=== PATIENT | female | born 1985 | race African-American/Black ===

== ENCOUNTER 2018-04-20 00:32 | Emergency (ER) | payer MEDICAID ==
[2018-04-20 00:53] VITALS: Ht 170.2 cm
[2018-04-20 02:18] VITALS: BP 102/65
== END 2018-04-20 02:18 | disposition home or self-care (01) ==
LOC: ED 00:32
DX: J11.1 Influenza due to unidentified influenza virus with other respiratory manifestations (principal); F17.210 Nicotine dependence, cigarettes, uncomplicated; Z71.6 Tobacco abuse counseling; Z98.51 Tubal ligation status; Z98.890 Other specified postprocedural states
CPT/HCPCS: 99406

== ENCOUNTER 2018-06-29 14:37 | Emergency (ER) | payer MEDICAID ==
[~2018-06-29] VITALS: Ht 170.2 cm; Wt 44.5 kg
[2018-06-29 14:41] VITALS: Ht 170.2 cm; Wt 44.5 kg
[2018-06-29 16:03] VITALS: BP 122/77
== END 2018-06-29 16:03 | disposition home or self-care (01) ==
LOC: ED 14:37
DX: J20.9 Acute bronchitis, unspecified (principal); Z98.51 Tubal ligation status; Z98.890 Other specified postprocedural states

== ENCOUNTER 2018-10-17 06:07 | Emergency (ER) | payer MEDICAID ==
[~2018-10-17] VITALS: Ht 170.2 cm; Wt 42.6 kg
[2018-10-17 06:22] VITALS: Ht 170.2 cm; Wt 42.6 kg
[2018-10-17 08:30] VITALS: BP 120/63
== END 2018-10-17 08:30 | disposition home or self-care (01) ==
LOC: ED 06:07
DX: M79.10 Myalgia, unspecified site (principal); F17.210 Nicotine dependence, cigarettes, uncomplicated; R51 Headache; Z98.51 Tubal ligation status
CPT/HCPCS: 87804; J1885

== ENCOUNTER 2018-10-17 17:35 | Emergency (ER) | payer MEDICAID ==
[~2018-10-17] VITALS: Ht 170.2 cm; Wt 44.9 kg
[2018-10-17 18:11] VITALS: Ht 170.2 cm; Wt 44.9 kg
[2018-10-17 19:14] LABS: BASOPHIL % 0.2 % (0-2); PLATELET COUNT 314 x10^3mcL (130-400)
[2018-10-17 19:19] LABS: CALCIUM 8.8 mg/dL (8.5-10.1); CARBON DIOXIDE 29.8 mmol/L (21-32); CHLORIDE SERUM 99 mmol/L (98-107); GFR1 > 60 mL/min; GLUCOSE SERUM 112 mg/dL (74-106); POTASSIUM SERUM 3.3 mmol/L (3.5-5.1); SODIUM SERUM 137 mmol/L (136-145)
[2018-10-17 19:23] LABS: ALBUMIN 4.2 g/dL (3.4-5.0); ALKALINE PHOSPHATASE 62 U/L (46-116); ALT/SGPT 25 U/L (14-59); AST/SGOT 23 U/L (15-37); BILIRUBIN TOTAL 0.44 mg/dL (0.20-1.00)
[2018-10-17 19:30] LABS: UA SPECIFIC GRAVITY 1.025 (1.005-1.035); microscopic required? YES; urine erythrocyte TRACE (NEGATIVE)
[2018-10-17 20:08] VITALS: BP 101/52
== END 2018-10-17 20:08 | disposition home or self-care (01) ==
LOC: ED 17:35
PROVIDERS: Emergency Medicine
DX: K52.9 Noninfective gastroenteritis and colitis, unspecified (principal); N39.0 Urinary tract infection, site not specified; R51 Headache; Z98.51 Tubal ligation status; Z98.890 Other specified postprocedural states; Z91.018 Allergy to other foods
CPT/HCPCS: J1885; J2405; J7030

== ENCOUNTER 2019-01-16 13:44 | Inpatient (IN) | payer MEDICAID ==
[~2019-01-16] VITALS: Ht 170.2 cm; Wt 41.4 kg
[2019-01-16 13:49] VITALS: Ht 170.2 cm; Wt 41.4 kg
--- NOTE | 2019-01-16 13:59 | NUR ---
PT BIB SELF C/C BODY ACHES LUNDBERG X [address]
--- NOTE | 2019-01-16 14:20 | NUR ---
PLEASE ENTER FULL NAMES OF CUSTOM STUDIO COORDINATOR/RN Patient data collected by (CUSTOM STUDIO COORDINATOR): Harpreet SELLERS CUSTOM STUDIO COORDINATOR Assessment reviewed and completed by (RN): MILLIE CALVO RN
--- NOTE | 2019-01-16 14:39 | NUR ---
DR JACOBSON AT BEDSIDE TO EVAL
[2019-01-16 15:03] LABS: BASOPHIL % 0.2 % (0-2); PLATELET COUNT 362 x10^3mcL (130-400); RED CELL DISTRIBUTION WIDTH 13.6 % (11.5-14.5)
--- NOTE | 2019-01-16 15:08 | NUR ---
TAKEN TO RADIOLOGY FOR CT
[2019-01-16 15:11] LABS: CALCIUM 9.2 mg/dL (8.5-10.1); CARBON DIOXIDE 28.1 mmol/L (21-32); CHLORIDE SERUM 99 mmol/L (98-107); CREATININE SERUM 0.8 mg/dL (0.6-1.0); GFR1 > 60 mL/min; GLUCOSE SERUM 90 mg/dL (74-106); POTASSIUM SERUM 3.1 mmol/L (3.5-5.1); SODIUM SERUM 139 mmol/L (136-145)
[2019-01-16 15:23] LABS: ALBUMIN 4.3 g/dL (3.4-5.0); ALKALINE PHOSPHATASE 60 U/L (46-116); ALT/SGPT 26 U/L (14-59); AST/SGOT 17 U/L (15-37); BILIRUBIN TOTAL 0.7 mg/dL (0.20-1.00); FREE T4 1.03 ng/dL (0.76-1.46)
[2019-01-16 15:29] LABS: UA SPECIFIC GRAVITY >=1.030 (1.005-1.035); microscopic required? YES; urine erythrocyte NEGATIVE (NEGATIVE)
[2019-01-16 15:37] LABS: AMPHETAMINE QUAL UR NONE DETECTED (See below)
--- NOTE | 2019-01-16 16:15 | NUR ---
PT SLEEPING FAMILY AT BEDSIDE
--- NOTE | 2019-01-16 16:41 | NUR ---
DR JACOBSON AT BEDSIDE TO GO OVER PLAN OF CARE
--- NOTE | 2019-01-16 16:46 | NUR ---
DR JACOBSON AT BEDSIDE FOR LP PROCEDURE
--- NOTE | 2019-01-16 17:03 | NUR ---
PROCEDURE COMPLETE PT TOLERATED WELL MEDICATED ORDERED
--- NOTE | 2019-01-16 18:01 | NUR ---
PT SLEEPING, CONT LAYING ON BACK
[2019-01-16 18:37] LABS: APPEARANCE CSF CLEAR; COLOR CSF COLORLESS; RBC CSF 1 /cumm (0); WBC CSF 1 /cumm (0-5); WBC CSF 2 /cumm (0-5)
[2019-01-16 18:38] LABS: RBC CSF 2 /cumm (0)
--- NOTE | 2019-01-16 18:42 | NUR ---
DR JACOBSON AT BEDSIDE TO RE EVAL AND GO OVER PLAN OF CARE
--- NOTE | 2019-01-16 18:56 | NUR ---
STARTED ON IV ATB
--- NOTE | 2019-01-16 19:13 | NUR ---
PT CURRENTLY LAYING IN BED. AWAKE, ALERT, RESPIRATIONS EVEN AND UNLABORED. SAFETY PRECAUTIONS IN PLACE
--- NOTE | 2019-01-16 19:31 | NUR ---
DR. JACOBSON WAS IN TO SPEAK TO PATIENT REGARDING PLAN OF CARE
[2019-01-16] MEDS ORDERED: ZOLOFT25 MG PO (20:06)
--- NOTE | 2019-01-16 20:46 | NUR ---
REPORT GIVEN TO FERDINAND APONTE, ALL QUESTIONS AND CONCERNS WERE ADDRESSED
[2019-01-16 20:57] LABS: MAGNESIUM 2.2 mg/dL (1.8-2.4); PHOSPHOROUS 3.6 mg/dL (2.5-4.9)
[2019-01-16 21:33] VITALS: BP 107/62
--- NOTE | 2019-01-16 21:41 | NUR ---
RECEIVED PT FROM ER. PT ADMIT FOR INTRACTABLE HEADACHE, PT IS A/O X4, VERBAL REPSONSIVE, ABLE TO TELL WHAT SHE NEEDS. BUT C/O HEADACHE 02/24, NO FACIAL DROOP NOTED. DENY ANY FACIAL NUMBNESS, LUNG SOUND CLEAR BILATERAL, NO COUGH, NO SOB, PT DENY ANY CHEST PAIN OR DISCOMFORT, BOWEL SOUND PRESENT ALL 4 QUADRANTS, NO DISTENITON, NO TENDER. PEDAL PULSE PRESENT BOTH FEEET, NO EDEMA, IV AT LEFT AC, NO LEAKING, NO INFILTRATION. ALL ADLS ASSIST, ALL NEED MET, CALL LIGHT IN REACH, WILL CONTINUE TO MONITOR.
--- NOTE | 2019-01-16 22:20 | NUR ---
TYLENOL GIVEN FOR FEVER AND HEADACHE.
--- NOTE | 2019-01-17 03:37 | NUR ---
PT C/O HEADACHE 12/25. NORCO GIVEN.
--- NOTE | 2019-01-17 04:33 | NUR ---
PT RESTING WITH EYES CLOSED. NO SOB ON ROOM AIR. NO DISTRESS NOTED. CALL LIGHT WITHIN REACH. WILL CONTINUE TO MONITOR.
[2019-01-17 06:18] VITALS: BP 102/59
[2019-01-17 06:23] LABS: PLATELET COUNT 322 x10^3mcL (130-400); RED CELL DISTRIBUTION WIDTH 13.8 % (11.5-14.5)
[2019-01-17 06:31] LABS: CALCIUM 8.4 mg/dL (8.5-10.1); CARBON DIOXIDE 25.1 mmol/L (21-32); CHLORIDE SERUM 101 mmol/L (98-107); CREATININE SERUM 0.9 mg/dL (0.6-1.0); GFR1 > 60 mL/min; GLUCOSE SERUM 96 mg/dL (74-106); MAGNESIUM 1.8 mg/dL (1.8-2.4); PHOSPHOROUS 3.2 mg/dL (2.5-4.9); POTASSIUM SERUM 3.3 mmol/L (3.5-5.1); SODIUM SERUM 136 mmol/L (136-145)
[2019-01-17 06:34] LABS: BASOPHIL % 0 % (0-2)
--- NOTE | 2019-01-17 06:56 | NUR ---
PT RESTING WITH EYES CLOSED. BREATHING EVEN AND UNLABORED. NO FACIAL GRIMACING. SAFETY MEASURES MAINTAINED. ALL NEEDS ATTENDED TO. CALL LIGHT WITHIN REACH. WILL ENDORSE CONTINUITY OF CARE TO ONCOMING RN.
--- NOTE | 2019-01-17 08:00 | NUR ---
ALERT AND ORIENTED. BREATHING FREELY ON RA. DENIES ANY PAIN AT THIS TIME. BAND AID COVERING LUMBAR TAP SITE WITH PIN POINT SPOT BLOOD STAIN. APPEARS ON THIN SIDE. NS INFUSING 100 CC HOUR TO LEFT AC. INDEPENDENT W ADL'S. WATERY STOOL THIS AM. CALL LIGHT WITHIN REACH. NO C/O H/A AT THIS TIME.
[2019-01-17 09:06] VITALS: BP 102/56
--- NOTE | 2019-01-17 09:24 | NUR ---
REPORTED TO RESESIDENT PT C/O DIARRHEA AND UNABLE TO VOID.
--- NOTE | 2019-01-17 10:26 | NUR ---
SCANNED BLADDER UISNG BLADDER SCAN. 11 CC URINE NOTED. ENCOURAGED PT TO DRINK MORE WATER TO HELP FLUSH OUT SYSTEM.
[2019-01-17 16:00] VITALS: BP 100/54
--- NOTE | 2019-01-17 18:25 | NUR ---
SITTING UP IN BED. SAYS HER HEADACHE IS GONE. INTERMITTENT PAIN TO BACK, LUMBAR TAP SITE. VSS. AFEBRILE. CONTINUES ON NS 100 CC HOUR. ROCEPHIN IV ABX. STOOL SENT FOR CX. INDEPENDENT W ADL'S. CALL LIGHT WITHIN REACH.
--- NOTE | 2019-01-17 18:51 | NUR ---
PAGED RESIDENT FOR K 3.3.
[2019-01-17 19:36] VITALS: BP 93/63
--- NOTE | 2019-01-17 19:36 | NUR ---
RECEIVED REPORT FROM AM NURSE, TIFFANY IN BED WITH FAMILY MEMBER AT BED SIDE. PT AAOX4 DENIES H/A, ABLE TO MAKE NEEDS KNOWN. MED-SURG, DENIES CP/PRESSURE. PALPABLE PULSES TO BLE AND BUE, NO EDEMA NOTED. LUNG SOUNDS CTA ON RA, BREATHING EVEN AND UNLABORED, NO SIGNS OF RESP DISTRESS NOTED. ABD SOFT AND FLAT, ACTIVE BOWEL SOUNDS X4 QUAD, PT C/O WATERY STOOLS AND ABD PAIN DESCRIBED ACHING. WILL MEDICATE ACCORDINGLY. VOIDS FREELY, BRP. AMBULATORY. BANDAID OVER LUMBAR PUCTURE ON HER BACK, BANDAID CDI. IV TO LAC INFUSING WELL, SITE FREE FROM REDNESS AND SWELLING. BED AT LOWEST POSITION, CALL LIGHT WITHING REACH, WILL CONTINUE TO MONITOR.
--- NOTE | 2019-01-17 19:43 | NUR ---
CALLED DR. WARREN RE: SERTRALINE 25 MG .HOME MEDS THAT PT WANTS TO CONTINUE TAKING WHILE IN THE HOSPITAL.FAMILY BROUGHT IN BOTTLE .
[2019-01-18 05:37] VITALS: BP 98/53
[2019-01-18 06:26] LABS: BASOPHIL % 0.5 % (0-2); PLATELET COUNT 313 x10^3mcL (130-400); RED CELL DISTRIBUTION WIDTH 13.5 % (11.5-14.5)
--- NOTE | 2019-01-18 06:34 | NUR ---
PT SLEPT WELL THROUGHOUT NIGHT, BREATHING EVEN ADN UNLABORED ON RA, NO SIGNS OF RESP DISTRESS NOTED. DENIES CP/PRESSURE, DENIES H/A. NS RUNNING WELL TO [facility], SITE WNL. BED AT LOWEST POSTION, CALL LIGHT WITHING REACH. WILL ENDORSE CARE TO AM NURSE.
[2019-01-18 06:39] LABS: ALKALINE PHOSPHATASE 52 U/L (46-116); ALT/SGPT 20 U/L (14-59); AST/SGOT 14 U/L (15-37); BILIRUBIN TOTAL 0.2 mg/dL (0.20-1.00); CALCIUM 8.4 mg/dL (8.5-10.1); CARBON DIOXIDE 24.5 mmol/L (21-32); CHLORIDE SERUM 103 mmol/L (98-107); CREATININE SERUM 0.7 mg/dL (0.6-1.0); GFR1 > 60 mL/min; GLUCOSE SERUM 94 mg/dL (74-106); MAGNESIUM 1.8 mg/dL (1.8-2.4); PHOSPHOROUS 2.8 mg/dL (2.5-4.9); POTASSIUM SERUM 3.5 mmol/L (3.5-5.1); SODIUM SERUM 137 mmol/L (136-145); TOTAL PROTEIN, SERUM 6.7 g/dL (6.4-8.2)
[2019-01-18 06:41] LABS: ALBUMIN 3.2 g/dL (3.4-5.0)
--- NOTE | 2019-01-18 07:27 | NUR ---
REPORT TAKEN FROM STITCH CLEANER NURSE AT THE BEDSIDE, PT AWAKE AND ALERT EATING BREAKFAST, DENIED ACUTE DISTRESS OR PAIN AT THIS TIME. WILL CONTINUE TO MONITOR.
[2019-01-18 07:57] VITALS: BP 113/58
[2019-01-18] MEDS ORDERED: BACTRIM DS1 TAB PO (08:15)
[2019-01-18 08:59] VITALS: BP 113/58
--- NOTE | 2019-01-18 11:00 | NUR ---
PT DC'D AT 1030, SINGED DC PAPERS, AND REVIEWED SUMMARY WITH THE NURSE, NO QUESTIONS ASKED AT TIME OF DC. IV DC'D FROM RIGHT FOREARM WITH CATH INTACT, SITE DRESSED WITH GUAZE AND COBAN PT TOLERATED WELL. TAKEN DOWN TO EXIT BY DRAIN TECHNICIAN IN NAD.
--- NOTE | 2019-01-18 12:36 | NUR ---
Initial Nutrition Assessment: (223-A) [facility] 33F Dx: Intracatble headache PMHx: Depression PSHx: x2, (Tube ligation x2) Labs: BUN 4.0 L, Alb 3.2 L, Ca 8.4 L, AST 14 L, RBC 3.58 L ,Hgb 9.7 L, HCT 30 L Meds: Rocephin, Zofran Diet: Regular PO intake since admission: <25% Ht: 67in Wt:91# BMI: 14.3 Bed scale: N/A IBW: 135# %IBW: 67% UBW: N/A Age: 33 Food Allergies: N/A Skin: Dexter: 21 Edema: Redness and swlling RLE, Hx DVT GI: Pt report lower abd pain Last BM: 01/17 RD Note (01/18): Nursing trigger received for appears underweight/malnourished; consult received for malnutrition. Unable to visit pt, D/C home today. Problem with: N/V/D/C: N/A Problems with: Chewing: N/A Swallowing: N/A Current appetite: N/A Recent wt change: N/A %wt change: N/A Vitamin/Supplement use: N/A Special diet at home: Regular Physical activity: N/A Nutrition education given (specify specific nutrition education and handout given): None given at this time. Food-drug interactions? Education given? None given at this time. Estimated Nutritional Needs Based on ideal body weight (61.4 kg) Energy: 3884-0589 kcal/day (30-35 kcal/kg for weight gain) Protein: 74-92 g/day (1.2-1.5 g/kg for weight gain) Fluid: 3575-1412 mL/day (1 mL/kcal) or per MD Nutrition Diagnosis: 1. Malnutrition r/t poor PO intake AEB BMI 14.3, 67% IBW, PO <25%. Intervention: 1. Add Ensure Enlive TID w/ each meal Monitor/Evaluate: Goal: PO intake at least 75% of estimated needs Monitor: PO intake, Labs, GI function F/U in 2-3days as high risk 01/20-01/21
--- NOTE | 2019-01-18 12:37 | NUR ---
Recommendations: 1. Add Ensure Enlive TID w/ each meal
== END 2019-01-18 10:48 | disposition home or self-care (01) | DRG 720 ==
LOC: ED 13:44 → MU 19:41
PROVIDERS: Emergency Medicine; ADMIT Internal Medicine
DX: A41.9 Sepsis, unspecified organism (principal); N17.0 Acute kidney failure with tubular necrosis; E44.1 Mild protein-calorie malnutrition; E87.6 Hypokalemia; G43.809 Other migraine, not intractable, without status migrainosus; F14.10 Cocaine abuse, uncomplicated; F12.10 Cannabis abuse, uncomplicated; Z68.1 Body mass index [BMI] 19.9 or less, adult; F17.210 Nicotine dependence, cigarettes, uncomplicated
CPT/HCPCS: 84439; 87046; 87046-59; 90715; G0378; J0696; J1885; J2270; J2765; J3370; J7030; J7050

== ENCOUNTER 2020-04-22 10:04 | Emergency (ER) | payer MEDICAID ==
[~2020-04-22] VITALS: Ht 167.6 cm; Wt 45.4 kg
[~2020-04-22 10:04] MED LIST: BACTRIM DS1 TAB PO; ZOLOFT25 MG PO
[2020-04-22 10:22] VITALS: Ht 167.6 cm; Wt 45.4 kg
[2020-04-22 10:56] VITALS: BP 133/83
== END 2020-04-22 10:56 | disposition home or self-care (01) ==
LOC: ED 10:04
DX: H61.22 Impacted cerumen, left ear (principal); G57.32 Lesion of lateral popliteal nerve, left lower limb; F17.210 Nicotine dependence, cigarettes, uncomplicated; Z98.890 Other specified postprocedural states; Z98.51 Tubal ligation status; Z91.018 Allergy to other foods; Z88.8 Allergy status to other drugs, medicaments and biological substances